=== PATIENT | male | born 1995 | race Caucasian/White ===

== ENCOUNTER 2017-03-08 02:14 | Emergency (ER) | payer SELFPAY ==
[~2017-03-08] VITALS: Ht 180.3 cm; Wt 77.2 kg
[2017-03-08 02:23] VITALS: TEMP 36.6; Ht 180.3 cm; Wt 77.2 kg
--- NOTE | 2017-03-08 02:56 | EMERGENCY ROOM VISIT NOTE ---
History Report prepared by Juanito: Charissa Mon Under the Supervision of: Dr. Wendy Brewster D.O. First contact with patient: 02:15 Stated Complaint: ALCOHOL History of Present Illness The patient is a 21 year old male who presents to the Emergency Room with complaints of an episode of alcohol overdose starting this evening. Per EMS, the patient was found passed out [place] a [place]. They state when police approached him he took off running. They report that while running from the police, he tripped and fell to his face. He did not lose consciousness. The patient denies pain anywhere, drug use besides alcohol, and any health problems. Source of History: patient, EMS History Limited By: intoxication Onset: this evening Position: other (global) Quality: other (global) Timing: other (episode) Note: The patient denies pain anywhere, drug use besides alcohol, and any health problems. Review of Systems See HPI for pertinent positives & negatives. A total of 10 systems reviewed and were otherwise negative. Past Medical & Surgical No known past medical history as the patient could not answer this question. Family History Patient reports no known family medical history. Social History Smoking Status: Never Smoker Alcohol Use: other Marital Status: single Occupation Status: employed Current/Historical Medications Unable to Obtain Active Prescriptions or Reported Meds Allergies Coded Allergies: No Known Allergies (Unverified , 10/21/15) Physical Exam Vital Signs Date Time Temp Pulse Resp B/P (MAP) Pulse Ox O2 Delivery O2 Flow Rate FiO2 03/08/17 06:40 84 20 165/92 95 Room Air 03/08/17 06:17 91 03/08/17 05:02 86 18 100/40 94 Room Air 03/08/17 03:00 98 18 122/48 93 Room Air 03/08/17 02:26 117 03/08/17 02:23 36.6 105 16 156/93 93 Room Air Physical Exam General: Slurred speech, smells of alcohol, denies drug use and pain. HEENT: Head - normocephalic. Abrasion over right eye with some edema. Pupils are equal, round, and reactive to light. Extraocular eye muscles are intact and sclera are anicteric. Ears - bilaterally patent canals with no evidence of hemotympanum. Nose - moist nasal mucosa without evidence of trauma or discharge. Mouth - moist buccal mucosa with no trauma to the teeth or signs of malocclusion. Neck: The neck is supple and there is no pain to palpation over the posterior cervical spine and no obvious step-offs or deformities. There is no JVD or tracheal deviation. Chest: There are no signs of deformities, contusions or abrasions to the chest wall. There is no obvious crepitus or paradoxical chest rise. Heart: Tachycardic rate, and regular rhythm. There is a normal S1 and S2 with no murmurs, clicks, or gallops appreciated. Lungs: Clear to auscultation bilaterally with no wheezes, rales, or rhonchi. Abdomen: Soft, completely nontender, nondistended, with good bowel sounds. There is no sign of trauma such as contusions, abrasions or penetrations. There are no palpable pulsatile masses or hepatosplenomegaly. There is no guarding, rigidity, or rebound noted. Pelvis: Stable to rock and compression. Extremities: No obvious, deformities, contusions, or edema. There are easily palpable peripheral pulses. Multiple abrasions over upper extremities and hands. Abrasions to left knee. Neuro: The patient is awake and alert and easily able to follow commands. Muscle strength is 5 out of 5 in all 4 extremities. Otherwise, neuro exam is unremarkable. Back: The entire thoracic, lumbar, and sacral spine were palpated. There are no obvious step-offs or deformities noted. There are no obvious signs of trauma such as contusions abrasions penetrations noted to the back. Medical Decision & Procedures ER Provider Diagnostic Interpretation: CT HEAD: No acute brain or skull injury. CT FACIAL: Images are degraded by motion artifact, but I do suspect a nasal bridge fracture. Correlate for point tenderness. Mild maxillary sinus mucosal disease. CT C SPINE: No fracture. Radiologist: Garry Trammell M.D. Study ready at 03:00 and initial results transmitted at 03:46. Laboratory Results 03/08/17 02:53 Test 03/08/17 02:53 Anion Gap 9.0 mmol/L (3-11) Est Creatinine Clear Calc Drug Dose 112.1 ml/min Estimated GFR () 109.9 Estimated GFR (Non- 94.8 BUN/Creatinine Ratio 13.2 (10-20) Calcium Level 8.4 mg/dl (8.5-10.1) Ethyl Alcohol mg/dL 293.0 mg/dl (0-3) Laboratory results per my review. ED Course 0216: Past medical records reviewed. The patient was evaluated in room B12B. A complete history and physical exam was performed. Labs were drawn as above. The patient was placed in the prone position to avoid aspiration. He was observing the nurse monitoring and pulse oximeter. He went for CT scan of the brain, cervical spine, and facial bones. 0402: I reevaluated the patient and he is sound asleep. The patient is hemodynamically stable. 0516: I reevaluated the patient and he is sound asleep. The patient is hemodynamically stable. 0744: The patient was reevaluated and he is more sober. I reviewed the CT findings and laboratory studies. I've encouraged him to avoid such excessive alcohol use in the future. He is being discharged with a sober friend. Medical Decision The patient is a 21 year old male who presents to the Emergency Room with complaints of an episode of alcohol overdose starting this evening. Differential diagnoses includes alcohol overdose, drug intoxication, head injury , hypoglycemia, facial bone fracture, c-spine injury. LABS: Alcohol 293 Glucose 115 Normal renal function The patient admits drinking alcohol tonight. He ran from police when he tripped and fell striking his face off the ground. CT scan of the facial bones shows a fracture to the bridge of the nose. The patient remained hemodynamically stable here in the emergency department. We were awaiting sobriety. The case will be signed out to Dr. Martin at change of shift. Impression Primary Impression: Alcohol overdose Additional Impression: Nasal bones, closed fracture Scribe Attestation The scribe's documentation has been prepared under my direction and personally reviewed by me in its entirety. I confirm that the note above accurately reflects all work, treatment, procedures, and medical decision making performed by me. Departure Information Dispostion Home / Self-Care Prescriptions Unable to Obtain Active Prescriptions or Reported Meds Referrals No Doctor, Assigned (PCP) Forms HOME CARE DOCUMENTATION FORM, IMPORTANT VISIT INFORMATION Additional Instructions Avoid such excessive alcohol use in the future Rest. Take plenty of clear liquids Use tylenol for headache Rest with your head elevated. Apply ice to the nose. Do not blow your nose over next 48 hours. Follow up with facial surgery. Problem Qualifiers Primary Impression: Alcohol overdose Encounter type: initial encounter Injury intent: accidental or unintentional Qualified Codes: T51.91XA - Toxic effect of unspecified alcohol , accidental (unintentional), initial encounter Additional Impression: Nasal bones, closed fracture Encounter type: initial encounter Qualified Codes: S02.2XXA - Fracture of nasal bones, initial encounter for closed fracture
[2017-03-08 03:21] LABS: BUN/CREATININE RATIO 13.2 (10-20); CALCIUM 8.4 mg/dl (8.5-10.1); CREATININE 1.1 mg/dl (0.60-1.40); POTASSIUM 3.3 mmol/L (3.5-5.1)
--- NOTE | 2017-03-08 07:12 | DIAGNOSTIC IMAGING REPORT ---
CT SCAN OF THE CERVICAL SPINE CLINICAL HISTORY: Trauma. Facial abrasions. COMPARISON STUDY: No priors. TECHNIQUE: CT scan of the cervical spine is performed from the skull base to the upper thoracic spine. Images are reviewed in the axial, sagittal, and coronal planes. IV contrast was not administered for this examination. A dose lowering technique was utilized adhering to the principles of ALARA. FINDINGS: Skeletal structures: The skeletal structures are well mineralized. There is no evidence of fracture or subluxation involving the cervical spine. Vertebral body height and alignment are maintained. There is straightening of the cervical lordosis. The odontoid process and lateral masses are intact. The atlantoaxial articulation is preserved. The spinous processes appear intact. Intervertebral discs: The disc spaces are well maintained. Central canal: Widely patent. Soft tissues: The prevertebral and paraspinous soft tissues are within normal limits. There are shotty cervical lymph nodes. Calvarium: The visualized calvarium at the skull base appears intact. Brain parenchyma: Partially visualized brain parenchyma the skull base is within normal limits. Sinuses and mastoids: The visualized paranasal sinuses are clear. The mastoid air cells are well pneumatized. Lung apices: Clear as visualized. IMPRESSION: There is no evidence of fracture or subluxation involving the cervical spine. Electronically signed by: Brian Acosta M.D. 03/08/2017 7:10 AM Dictated Date/Time: 03/08/2017 7:08 AM
--- NOTE | 2017-03-08 07:36 | DIAGNOSTIC IMAGING REPORT ---
CT SCAN OF THE FACIAL BONES WITHOUT IV CONTRAST CLINICAL HISTORY: Trauma. Facial abrasions. COMPARISON STUDY: CT of the brain performed concurrently on 03/08/2017. TECHNIQUE: High-resolution CT scan of the facial bones is performed. Images are reviewed in the axial, sagittal, and coronal planes. IV contrast was not administered for this examination. A dose lowering technique was utilized adhering to the principles of ALARA. The examination is degraded by motion artifact. CT DOSE: 1153.88 mGy.cm FINDINGS: The skeletal structures are well mineralized. There is no evidence of facial bone fracture. The bony orbits are intact and the orbital contents are within normal limits. The zygomatic arches, nasal bones, and pterygoid plates are preserved. The maxilla and mandible are intact. There are no layering blood products within the paranasal sinuses. Mild mucosal thickening is seen in the maxillary antra. The remaining paranasal sinuses are clear. The mastoid air cells are well pneumatized. The visualized calvarium and upper cervical spine are maintained. Partially imaged brain parenchyma is within normal limits. Shotty cervical lymph nodes are identified. IMPRESSION: 1. There is no definite evidence of facial bone fracture. 2. Evaluation of the nasal bones is significant degraded by motion artifact. Subtle nasal bone fracture would be impossible to exclude. Clinical correlation will be required. Electronically signed by: Brian Acosta M.D. 03/08/2017 7:34 AM Dictated Date/Time: 03/08/2017 7:30 AM
--- NOTE | 2017-03-08 07:45 | DIAGNOSTIC IMAGING REPORT ---
CT SCAN OF THE BRAIN WITHOUT IV CONTRAST CLINICAL HISTORY: Trauma. COMPARISON STUDY: No priors. TECHNIQUE: Unenhanced axial CT scan of the brain is performed from the vertex to the skull base. Automated dose control exposure was utilized. A dose lowering technique was utilized adhering to the principles of ALARA. CT DOSE: Reported separately under the concurrently performed CT scan of the facial bones. FINDINGS: Brain parenchyma: The brain parenchyma is normal in appearance. There is no hemorrhage, mass effect, or evidence of acute territorial ischemia by CT criteria. Sher-white matter is preserved. No extra-axial fluid collection is seen. Ventricles, sulci, cisterns: Normal in configuration. Intracranial vasculature: The visualized intracranial vasculature at the skull base is normal in appearance. Calvarium: There is no depressed calvarial fracture. Sinuses and mastoids: The visualized paranasal sinuses are clear. The mastoid air cells are well pneumatized. Orbits: The bony orbits are grossly intact. IMPRESSION: No acute intracranial abnormality. Electronically signed by: Brian Acosta M.D. 03/08/2017 7:44 AM Dictated Date/Time: 03/08/2017 7:43 AM
[2017-03-08 08:03] VITALS: BP 121/90; PULSE 100; O2SAT 95
== END 2017-03-08 08:04 | disposition home or self-care (01) ==
LOC: EDBD 02:14 → C.EDB 02:15
DX: T51.91XA Toxic effect of unspecified alcohol, accidental (unintentional), initial encounter (principal); S02.2XXA Fracture of nasal bones, initial encounter for closed fracture; W01.0XXA Fall on same level from slipping, tripping and stumbling without subsequent striking against object, initial encounter